=== PATIENT | male | born 1945 | race Caucasian/White ===

== ENCOUNTER 2019-10-02 14:53 | Emergency (ER) | payer MEDICARE, OTHER ==
[~2019-10-02] VITALS: Ht 180.3 cm; Wt 81.6 kg
[2019-10-02] MEDS ORDERED: LIDOCAINE 1%-EPI 1:100,000 20 ML VIAL IJ ONE (15:00)
[2019-10-02] MEDS ORDERED: TDAP DIPH,PERTUSS,TET VAC/PF 0.5 ML DISP.SYRIN IM ONE ×2 (15:00→15:05)
[2019-10-02] MEDS ORDERED: ACETAMINOPHEN 325 MG TABLET PO ONE (15:00)
--- NOTE | 2019-10-02 15:00 | NUR ---
Patient brought in by rescue ambulance for s/p fall in an alley. Patient is alert and oriented x 4, noted Lt sided weakness from previous stroke; per patient stroke was 15 years ago. Pt placed in RM5A, attached to bedside monitor. BP noted at 184/112. Dr. Vyas made aware.
[2019-10-02] MEDS ORDERED: ACETAMINOPHEN 325 MG TABLET ONE (15:05)
[2019-10-02] MEDS ORDERED: LIDOCAINE 1%-EPI 1:100,000 20 ML VIAL ONE (15:05)
[2019-10-02] MEDS ORDERED: LABETALOL HCL 100 MG/20 ML VIAL ONE ×2 (16:00→17:07)
[2019-10-02] MEDS ORDERED: LABETALOL HCL 100 MG/20 ML VIAL IV ONE ×2 (16:00→16:45)
[2019-10-02 16:13] LABS: BASOPHILS # (AUTO) 0.1 K/uL (0.0-8.0); BASOPHILS % (AUTO) 0.6 % (0.0-2.0); EOSINOPHILS # (AUTO) 0.1 K/uL (0.0-0.7); EOSINOPHILS % (AUTO) 1.2 % (0.0-7.0); HEMATOCRIT 41.6 % (36.7-47.1); HEMOGLOBIN 13.8 g/dL (12.5-16.3); LYMPHOCYTES # (AUTO) 1.4 K/uL (20.0-40.0); LYMPHOCYTES % (AUTO) 14.8 % (20.5-51.5); MEAN CORPUSCULAR HEMOGLOBIN 30.2 uug (23.8-33.4); MEAN CORPUSCULAR HGB CONC 33 g/dL (32.5-36.3); MEAN CORPUSCULAR VOLUME 91.1 fL (73.0-96.2); MONOCYTES # (AUTO) 0.6 K/uL (2.0-10.0); MONOCYTES % (AUTO) 6.6 % (0.0-11.0); NEUTROPHILS # (AUTO) 7.3 K/uL (1.8-8.9); NEUTROPHILS % (AUTO) 76.8 % (38.5-71.5); PLATELET COUNT (AUTO) 296 K/uL (152-348); RED BLOOD CELL COUNT(AUTO) 4.57 MIL/uL (4.06-5.63); WHITE BLOOD COUNT (AUTO) 9.5 K/uL (3.6-10.2)
--- NOTE | 2019-10-02 16:20 | NUR ---
PT UNABLE TO RECALL ALL HIS MEDICATIONS AT THE PRESENT TIME.
[2019-10-02 16:22] LABS: CREATININE 1.1 mg/dL (0.6-1.3)
[2019-10-02 16:29] LABS: BILIRUBIN,DIRECT 0.1 mg/dL (0.0-0.2); BILIRUBIN,TOTAL 0.4 mg/dL (0.1-1.0); TOTAL PROTEIN, SERUM 7.6 g/dL (6.4-8.2)
[2019-10-02] MEDS ORDERED: LEVETIRACETAM IV 1,000 MG in IV DEXTROSE 5% 100 ML IV ONE (16:30)
--- NOTE | 2019-10-02 16:30 | NUR ---
speaking with via telephone.
--- NOTE | 2019-10-02 16:39 | NUR ---
patient family (pt's and daughter) at bedside.
[2019-10-02 17:15] VITALS: BP 183/136
--- NOTE | 2019-10-02 17:33 | NUR ---
Requested information faxed to [facility] ([phone]).
--- NOTE | 2019-10-02 17:35 | NUR ---
speaking with pt's PCP Dr.Mojgan Diaz via telephone.
--- NOTE | 2019-10-02 17:51 | NUR ---
Elva called back with transfer information. Patient will be going to Room 4401; report to be given to phone #[phone] ext [phone] [facility] ETA about 45-hr
--- NOTE | 2019-10-02 18:13 | NUR ---
SBAR report given to Sherri CRYSTAL at [facility].
--- NOTE | 2019-10-02 18:46 | NUR ---
[facility] Unit 408 at bedside to machine operator hop picker patient report given to Marques LANGLEY.
== END 2019-10-02 18:58 | disposition short-term general hospital (02) ==
LOC: ER 14:55
DX: S06.6X0A Traumatic subarachnoid hemorrhage without loss of consciousness, initial encounter (principal); S22.32XA Fracture of one rib, left side, initial encounter for closed fracture; S01.112A Laceration without foreign body of left eyelid and periocular area, initial encounter; Z79.899 Other long term (current) drug therapy; Z86.73 Personal history of transient ischemic attack (TIA), and cerebral infarction without residual deficits; W22.8XXA Striking against or struck by other objects, initial encounter; Y93.01 Activity, walking, marching and hiking; Y92.89 Other specified places as the place of occurrence of the external cause; Y99.8 Other external cause status
CPT/HCPCS: 12013; 36415; 70450; 71101; 72125; 80048; 80076; 85025; 85730; 90471; 90715; 93005; 96365; 96375; 96376; 99291; J1953; J3490 ×3; J7060; A4217; A4663

== ENCOUNTER 2019-10-30 16:07 | Inpatient (IN) | payer MEDICARE, OTHER ==
[~2019-10-30] VITALS: Ht 180.3 cm; Wt 72.6 kg
[2019-10-30 16:28] LABS: BASOPHILS # (AUTO) 0.1 K/uL (0.0-8.0); EOSINOPHILS # (AUTO) 0.2 K/uL (0.0-0.7); EOSINOPHILS % (AUTO) 2.5 % (0.0-7.0); HEMATOCRIT 37.3 % (36.7-47.1); HEMOGLOBIN 12.2 g/dL (12.5-16.3); LYMPHOCYTES # (AUTO) 1.8 K/uL (20.0-40.0); LYMPHOCYTES % (AUTO) 21.4 % (20.5-51.5); MEAN CORPUSCULAR HEMOGLOBIN 30.1 uug (23.8-33.4); MEAN CORPUSCULAR HGB CONC 33 g/dL (32.5-36.3); MEAN CORPUSCULAR VOLUME 91.9 fL (73.0-96.2); MONOCYTES # (AUTO) 0.6 K/uL (2.0-10.0); MONOCYTES % (AUTO) 7.7 % (0.0-11.0); NEUTROPHILS # (AUTO) 5.6 K/uL (1.8-8.9); NEUTROPHILS % (AUTO) 67.4 % (38.5-71.5); PLATELET COUNT (AUTO) 247 K/uL (152-348); RED BLOOD CELL COUNT(AUTO) 4.06 MIL/uL (4.06-5.63); WHITE BLOOD COUNT (AUTO) 8.4 K/uL (3.6-10.2)
--- NOTE | 2019-10-30 16:28 | NUR ---
Patient BIB pvt ambulance from [facility] for med cl and psychiatric evaluation. According to report, patient has had increased combativeness, and agitation. A/Ox3. Speech is clear, speaks in complete sentences. No acute neuro deficits. Respiratory even and unlabored, no cough no sob. Denies any cp, palpitations, or any abd pain. Patient in bed at lowest position, sr upx2, call light within reach. Fall precautions implemented per protocol.
--- NOTE | 2019-10-30 16:41 | NUR ---
Patient transported to CT in stable condition.
[2019-10-30 16:44] LABS: CARBON DIOXIDE 29 mmol/L (21-32); CHLORIDE 104 mmol/L (98-107); CREATININE 0.9 mg/dL (0.6-1.3); GLUCOSE 124 mg/dL (74-106); POTASSIUM 4.5 mmol/L (3.5-5.1); UREA NITROGEN, BLOOD 18 mg/dL (7-18)
[2019-10-30 16:47] LABS: ETHANOL < 3 MG/DL (0-0)
[2019-10-30 16:48] LABS: ALANINE AMINOTRANSFERASE 26 U/L (16-63); ALKALINE PHOSPHATASE 75 U/L (50-136); ASPARTATE AMINOTRANSFERASE 14 U/L (15-37); BILIRUBIN,TOTAL 0.4 mg/dL (0.2-1.0); TOTAL PROTEIN, SERUM 7.5 g/dL (6.4-8.2)
[2019-10-30 16:49] LABS: BILIRUBIN,DIRECT < 0.1 mg/dL (0.0-0.2)
[2019-10-30 16:50] LABS: ACETAMINOPHEN < 2.0 ug/mL (10-30)
--- NOTE | 2019-10-30 17:04 | NUR ---
called [facility], [facility], for psych eval. ETA 30 min.
--- NOTE | 2019-10-30 17:33 | NUR ---
Shaw Pendleton at bedside for eval
[2019-10-30] MEDS ORDERED: OLANZAPINE 10 MG VIAL IM ONE ×2 (17:59→18:00)
--- NOTE | 2019-10-30 18:12 | NUR ---
Report given to BONILLA Donnelly
--- NOTE | 2019-10-30 18:32 | NUR ---
Report given to Carin
--- NOTE | 2019-10-30 18:38 | NUR ---
Patient transported to MHU in stablel condition.
--- NOTE | 2019-10-30 19:00 | NUR ---
ADMITTED PATIENT ON MHU FLOOR UNDER THE CARE OF DR. PICHARDO. PATIENT ALERT ORIENTED, WITH LEFT ARM AND LEFT LEG WEAKNESS. PATIENT CALM AT THIS TIME, ANSWERS QUESTION DURING INTERVIEW FOR ADMISSION. PATIENT WAS ORIENTED TO ROOM AND TO THE STAFF. CONT TO MONITOR.
[2019-10-30 20:00] VITALS: BP 116/67
[2019-10-30] MEDS ORDERED: ACETAMINOPHEN 325 MG TABLET PO PRN ×2 (20:45→21:00)
[2019-10-30] MEDS ORDERED: TEMAZEPAM 7.5 MG CAPSULE PO PRN (21:00)
[2019-10-30] MEDS ORDERED: MAGNESIUM HYDROXIDE 30 ML LIQUID UDC PO PRN (21:00)
[2019-10-30] MEDS ORDERED: BLOOD SUGAR DIAGNOSTIC 1 EACH STRIP VI ONE (21:00)
[2019-10-30] MEDS ORDERED: MAG HYDROX/AL HYDROX/SIMETH 30 ML LIQUID UDC PO PRN (21:00)
[2019-10-30] MEDS: LEVETIRACETAM 500 MG TABLET PO SCH (21:41)
[2019-10-30] MEDS: ATORVASTATIN 40 MG TABLET PO SCH (21:41)
--- NOTE | 2019-10-30 21:50 | NUR ---
PATIENT REFUSED BLOOD SUGAR TESTING.
[2019-10-31 07:30] VITALS: BP 128/78
[2019-10-31] MEDS: METFORMIN HCL 500 MG TABLET PO SCH ×2 (08:20→17:51)
[2019-10-31] MEDS: AMLODIPINE 10 MG TABLET PO SCH (08:20)
[2019-10-31] MEDS: LEVETIRACETAM 500 MG TABLET PO SCH ×2 (08:20→20:04)
[2019-10-31] MEDS: PANTOPRAZOLE SODIUM 40 MG TABLET.DR PO SCH (09:00)
--- NOTE | 2019-10-31 12:46 | NUR ---
Received patient awake and alert. VS normal. Ambulatory to nurses station demanding his personal phone so he can " Play games on it". Unit policies explained . Patient angry and irritable and does not want to be "In this intermediate". Medication offered to help patient with anxiety, but patient refused. Waiting to see the doctor at this point, pacing in the byrd at times. Patient is forgetful and needs reorientation. Monitoring for safety and any behavior escalation.
--- NOTE | 2019-10-31 15:53 | NUR ---
Social Work Initial Discharge Plan: Patient was currently residing at [facility] [address] [place], [place] [id number] . Patient will return to the care home facility upon discharge. SW will continue to work with patient, family, and MD to ensure a safe and proper discharge plan.
[2019-10-31 16:00] VITALS: BP 97/54
--- NOTE | 2019-10-31 16:16 | NUR ---
Social Work Coordination of Care: Maintainer Operator spoke with Larisa admin coordinator at [facility] ([phone]) who confirmed that patient can return when he is stable for discharge.
[2019-10-31] MEDS: ATORVASTATIN 40 MG TABLET PO SCH (20:04)
[2019-10-31] MEDS: OLANZAPINE 5 MG TABLET PO SCH (20:04)
[2019-10-31] MEDS: MIRTAZAPINE 15 MG TABLET PO SCH (20:04)
[2019-10-31 20:19] VITALS: BP_SYST 63
[2019-11-01] MEDS: PANTOPRAZOLE SODIUM 40 MG TABLET.DR PO SCH (06:27)
--- NOTE | 2019-11-01 06:54 | NUR ---
GPS: Pt.refused Protonix 40mg PO at this time despite explanation of risks vs benefits x3. Easily irritable when approached. Re-directed prn.
[2019-11-01 07:30] VITALS: BP 133/81
[2019-11-01] MEDS: METFORMIN HCL 500 MG TABLET PO SCH ×2 (08:53→18:08)
[2019-11-01] MEDS: LEVETIRACETAM 500 MG TABLET PO SCH ×2 (08:53→20:41)
[2019-11-01] MEDS: AMLODIPINE 10 MG TABLET PO SCH (08:53)
[2019-11-01 16:00] VITALS: BP 126/67
[2019-11-01 20:02] VITALS: BP 115/62
[2019-11-01] MEDS: OLANZAPINE 5 MG TABLET PO SCH (20:41)
[2019-11-01] MEDS: MIRTAZAPINE 15 MG TABLET PO SCH (20:41)
[2019-11-01] MEDS: ATORVASTATIN 40 MG TABLET PO SCH (20:41)
[2019-11-02] MEDS: PANTOPRAZOLE SODIUM 40 MG TABLET.DR PO SCH (06:44)
[2019-11-02 07:30] VITALS: BP 127/77
[2019-11-02] MEDS: METFORMIN HCL 500 MG TABLET PO SCH ×2 (09:18→18:00)
[2019-11-02] MEDS: LEVETIRACETAM 500 MG TABLET PO SCH ×2 (09:18→20:01)
[2019-11-02] MEDS: AMLODIPINE 10 MG TABLET PO SCH (09:18)
[2019-11-02 15:07] VITALS: BP 107/67
--- NOTE | 2019-11-02 18:02 | NUR ---
Gps/Drawstring Knotter- Patient verbalized feelings of being depressed, that no one from his family comes to visit nor calls him. Patient claimed every minute he stayed in this unit seems like years to him," might as well, in my sleep" per patient. Encouraged to continue verbalized feelings and needs. Explained main reason why he's here, reassured patient staff are here to help him with his safety and needs..Offered to assist calling his daughter , refused . Patient claimed he felt bad when they took his cell phone and clothes informed his cell phone kept in the safe and all of his belongings will be given back to him. Patient also refused Glucophage when asked why he iis refusing pm med.patient stated" what is the use , i hope i go sleep forever" Denies any pain and discomfort, encouraged and instructed to keep talking to staff and his Psychiatrist , verbalized feelings and needs. Safety reviewed and emphasized.
[2019-11-02] MEDS: ATORVASTATIN 40 MG TABLET PO SCH (20:02)
[2019-11-02] MEDS: OLANZAPINE 5 MG TABLET PO SCH (20:02)
[2019-11-02] MEDS: MIRTAZAPINE 15 MG TABLET PO SCH (20:02)
[2019-11-02 20:03] VITALS: BP_SYST 136
--- NOTE | 2019-11-02 20:10 | NUR ---
GPS: Pt.refused all scheduled bedtime meds.despite explanation of risks vs benefits x3. Pt.is irritable,depressed,angry and verbalizing to staff that he's going to stop taking all his meds.now after being placed on a 14 day hold. Staff attempted to explain to pt.what it means but pt. refusing to hear staff's explanation. Also feels very sad,depressed because his family hasn't visited him yet,per pt. Re-assured prn. Safety checks Q15 minutes continues. Will monitor closely.
[2019-11-03] MEDS: PANTOPRAZOLE SODIUM 40 MG TABLET.DR PO SCH ×2 (06:37→08:36)
[2019-11-03 07:30] VITALS: BP 107/77
[2019-11-03] MEDS: CLONAZEPAM 0.5 MG TABLET PO PRN (08:31)
[2019-11-03] MEDS: LEVETIRACETAM 500 MG TABLET PO SCH ×2 (08:44→20:30)
[2019-11-03] MEDS: METFORMIN HCL 500 MG TABLET PO SCH ×2 (08:44→17:05)
[2019-11-03] MEDS: AMLODIPINE 10 MG TABLET PO SCH (08:44)
--- NOTE | 2019-11-03 12:29 | NUR ---
GPS: Nursing Notes: Thought Disorder: Patient awake and responding to his name, uncooperative, refusing his medications this am, educated about the 5250, depressed mood and angry affect, "I am leaving today.. I want to go home.. I have my own car and my own house..", believes that her daughter is taking his property, "My daughter is crazy.. She is taking my money...", "I am not suppose to be here... I did nothing wrong.. How would you feel if they send to [facility]..", forgetful at times, after explaining the pros and cons of refusing medications, patient decided to be compliant with his morning medications, took a shower and allow for staff to shave him, unable to formulate a viable plan for self care, believes that he is here by mistake, stated "[facility].. I did nothing wrong..", redirected and reoriented during shift, continue with treatment plan.
[2019-11-03 16:00] VITALS: BP 127/74
[2019-11-03 20:19] VITALS: BP 118/68
[2019-11-03] MEDS: OLANZAPINE 5 MG TABLET PO SCH (20:30)
[2019-11-03] MEDS: ATORVASTATIN 40 MG TABLET PO SCH (20:30)
[2019-11-03] MEDS: MIRTAZAPINE 15 MG TABLET PO SCH (20:30)
[2019-11-04] MEDS: PANTOPRAZOLE SODIUM 40 MG TABLET.DR PO SCH (06:13)
--- NOTE | 2019-11-04 06:38 | NUR ---
Pt took his medications last night. Restoril PRN given. Slept 8.45 hours.
[2019-11-04 07:30] VITALS: BP 115/65
[2019-11-04] MEDS: AMLODIPINE 10 MG TABLET PO SCH (08:38)
[2019-11-04] MEDS: METFORMIN HCL 500 MG TABLET PO SCH ×2 (08:38→17:14)
[2019-11-04] MEDS: CLONAZEPAM 0.5 MG TABLET PO PRN (08:38)
[2019-11-04] MEDS: LEVETIRACETAM 500 MG TABLET PO SCH ×2 (08:39→20:25)
--- NOTE | 2019-11-04 15:02 | NUR ---
GPS: Nursing Notes: Thought Disorder: Patient awake and responding to his name, incontinent of urine, s/p CVA with left side weakness, ambulatory by self, depressed mood and angry affect, stated "I want to go home.. I have my own house..", A/Ox2, forgetful, gets easily irritable when redirected, poor anger management at times, resistant with nursing care at times, unable to formulate a viable plan for self care, paranoid behavior at times, believes that we are against him, "[facility]..", "I am here by mistake.. There is nothing wrong with me..", assisted with ADL's, continue with treatment plan.
[2019-11-04 16:00] VITALS: BP 127/76
[2019-11-04 20:00] VITALS: BP 104/68
[2019-11-04] MEDS: MIRTAZAPINE 15 MG TABLET PO SCH (20:25)
[2019-11-04] MEDS: ATORVASTATIN 40 MG TABLET PO SCH (20:25)
[2019-11-04] MEDS: OLANZAPINE 5 MG TABLET PO SCH (20:25)
[2019-11-05] MEDS: PANTOPRAZOLE SODIUM 40 MG TABLET.DR PO SCH (06:09)
[2019-11-05 07:30] VITALS: BP 117/70
[2019-11-05] MEDS: LEVETIRACETAM 500 MG TABLET PO SCH ×2 (08:56→20:09)
[2019-11-05] MEDS: METFORMIN HCL 500 MG TABLET PO SCH ×2 (08:56→17:04)
[2019-11-05] MEDS: AMLODIPINE 10 MG TABLET PO SCH (08:56)
[2019-11-05] MEDS: CLONAZEPAM 0.5 MG TABLET PO PRN (08:56)
--- NOTE | 2019-11-05 15:48 | NUR ---
Social Work Firearms Report ([employer]): Disability Manager completed and submitted a [employer] firearms report for 5250 grave disability certification. A copy of report has been placed in patient chart.
[2019-11-05 20:00] VITALS: BP 129/76
[2019-11-05] MEDS: MIRTAZAPINE 15 MG TABLET PO SCH (20:09)
[2019-11-05] MEDS: OLANZAPINE 5 MG TABLET PO SCH (20:09)
[2019-11-05] MEDS: ATORVASTATIN 40 MG TABLET PO SCH (20:09)
--- NOTE | 2019-11-05 21:27 | NUR ---
GPS: Pt.is anxious,easily irritable and argumentative. Angry that he hasn't been discharged to his home yet. Threatening to walk out of the unit tomorrow if doctor doesn't release him. Explained to him about his 14 day hold but refuses to comprehend. Poor insight to present situation. AWOL precautions observed. Refused prn for anxiety despite explanation of risks vs.benefits x3. Refused to be re-assured by staff. Will continue to monitor for further escalation.
[2019-11-06] MEDS: PANTOPRAZOLE SODIUM 40 MG TABLET.DR PO SCH (06:28)
[2019-11-06 07:52] VITALS: BP 126/78
[2019-11-06] MEDS: CLONAZEPAM 0.5 MG TABLET PO PRN (08:20)
[2019-11-06] MEDS: LEVETIRACETAM 500 MG TABLET PO SCH (08:20)
[2019-11-06] MEDS: METFORMIN HCL 500 MG TABLET PO SCH (08:20)
[2019-11-06 08:21] VITALS: BP 126/78
[2019-11-06] MEDS: AMLODIPINE 10 MG TABLET PO SCH (08:21)
--- NOTE | 2019-11-06 10:16 | NUR ---
Social Work Coordination of Care: typing office worker spoke with [facility] Larisa Admin Coordinator and Imani Baird ([phone]) who came and evaluated the patient yesterday. Larisa and Imani informed this pediatric social worker that the patient may benefit from [facility] ([phone]). Machining Manager faxed patient's referral packet to Anurag at [facility] who reviewed and accepted the patient to their facility. Patient will be arranged for discharge today. RITESH spoke with patient's daughter, Brenda Levy ([phone]) who is aware and agreeable with patient's placement and discharge plans.
--- NOTE | 2019-11-06 10:29 | NUR ---
Social Work Discharge Note: [facility] [address] [place] [address] ([phone]). Patient will be provided Ambulance transportation at 3:00pm. Spoke with Anurag, Admin Coordinator at the facility who states they are ready to accept the patient today. Patient is aware and agreeable with discharge plans. Patient is alert and oriented x3, is unable to plan for self-care at this time, however, is willing to accept care at [facility]. Patient denies any suicidal or homicidal ideation. Patient presents with calm mood and flat affect. Patient will follow-up at the facility with Dr. Flowers Psychiatrist and Dr. Beard Embedded Firmware Developer. Patients Daughter Brenda ([phone]) is aware and agreeable with discharge plans.
--- NOTE | 2019-11-06 15:59 | NUR ---
GPS: Nursing Notes: Discharge Notes: Patient is awake and responding to his name, cooperative with nursing care, compliant with his medications, following staff directions, denies any SI/HI, denies any AH/VH, denies any pain or discomfort, denies any SOB, discharge to [facility] at [address] [place] [id number] , report given to Angelo CRYSTAL data control clerk supervisor, transported to facility via ambulance, took all his belongings with him. Patient will follow-up at the facility with Dr. Flowers Psychiatrist and Dr. Alan Event Staff Member. Patients Daughter Brenda ([phone]) is aware and agreeable with discharge plans.
== END 2019-11-06 16:00 | DRG 885 ==
LOC: ER 16:08 → GPS 18:27
PROVIDERS: ADMIT Psychiatry & Neurology Psychiatry; ATTEND Internal Medicine
DX: F32.3 Major depressive disorder, single episode, severe with psychotic features (principal); I69.354 Hemiplegia and hemiparesis following cerebral infarction affecting left non-dominant side; G40.909 Epilepsy, unspecified, not intractable, without status epilepticus; E78.5 Hyperlipidemia, unspecified; E11.9 Type 2 diabetes mellitus without complications; Z79.84 Long term (current) use of oral hypoglycemic drugs; Z79.899 Other long term (current) drug therapy; I10 Essential (primary) hypertension; F41.9 Anxiety disorder, unspecified; Z91.81 History of falling
CPT/HCPCS: 36415; 70450; 71045; 85025; 85730; 93005; G0480; G0480-TC; J2358